=== PATIENT | male | born 1995 | race Two or more races ===

== ENCOUNTER 2018-02-12 00:21 | Emergency (ER) | payer SELFPAY ==
[~2018-02-12] VITALS: Ht 170.2 cm; Wt 61.2 kg
[2018-02-12 03:05] VITALS: BP 130/77
[2018-02-12] MEDS ORDERED: LORazepam 0.5 MG TAB PO ONE (04:00)
== END 2018-02-12 04:28 | disposition home or self-care (01) ==
LOC: ER 00:21
DX: M79.602 Pain in left arm (principal); F41.9 Anxiety disorder, unspecified
CPT/HCPCS: 73060

== ENCOUNTER 2019-01-11 11:50 | Emergency (ER) | payer MEDICAID ==
[~2019-01-11] VITALS: Ht 167.6 cm; Wt 63.5 kg
[2019-01-11] MEDS ORDERED: SODIUM CHLORIDE 0.9% 1,000 ML IVB ONE (12:00)
[2019-01-11 13:22] LABS: Urine Bacteria FEW /hpf (None Seen); Urine Blood Negative /uL (Negative); Urine Hyaline Cast FEW /lpf (0 - 2); Urine Mucus FEW (None Seen); Urine Specific Gravity 1.022 (1.001-1.035); Urine WBC 2 /hpf (0 - 3)
[2019-01-11 13:26] LABS: Basophils # (auto) 0.1 uL; Basophils % (auto) 0.2 % (0.0-2.0); Eosinophils # (auto) 0 uL; Eosinophils % (auto) 0.1 % (0.0-7.0); Hematocrit 46.9 % (41.0-53.0); Hemoglobin 16.1 g/dL (13.5-17.5); Lymphocytes # (auto) 0.7 uL; Lymphocytes % (auto) 3.2 % (10.0-50.0); Mean Corpuscular Hemoglobin 31.8 pg (28.0-32.0); Mean Corpuscular Hgb Conc. 34.4 g/dL (32.0-36.0); Mean Corpuscular Volume 92.4 fL (80.0-100.0); Monocytes # (auto) 1.1 uL; Monocytes % (auto) 5.1 % (0.0-12.0); Neutrophils # (auto) 19.7 uL; Neutrophils % (auto) 91.4 % (37.0-80.0); Platelet Count (auto) 198 10^3/uL (140-450); Red Blood Cells 5.07 10^6/uL (4.5-5.90); Red Cell Distribution Width 12.6 % (11.8-14.3); White Blood Cell 21.5 10^3/uL (4.4-10.8)
[2019-01-11 13:27] LABS: Alcohol, Urine < 3.0 mg/dL (0-5); Amphetamine Screen, Urine NEGATIVE (NEGATIVE); Barbiturate Scree,Urine NEGATIVE (NEGATIVE); Benzodiazephine Screen, Urine POSITIVE (NEGATIVE); Cannabinoid Screen, Urine POSITIVE (NEGATIVE); Opiate Scree,Urine NEGATIVE (NEGATIVE); Phencyclidine Screen, Urine NEGATIVE (NEGATIVE)
[2019-01-11 13:41] LABS: Albumin 4.3 g/dL (3.4-5.0); Anion Gap 9 (5-15); BUN/Creatinine Ratio 14.8; Blood Alcohol < 3.0 mg/dL (0-5); Blood Urea Nitrogen 16 mg/dL (7-18); Calcium 7.7 mg/dL (8.5-10.1); Carbon Dioxide 26 mmol/L (21-32); Chloride 107 mmol/L (98-107); GFR African American 111 mL/min; GFR Non-African American 92 mL/min; Glucose 109 mg/dL (74-106); Magnesium 2.6 mg/dL (1.6-2.6); Potassium 3.8 mmol/L (3.5-5.1); Sodium 142 mmol/L (136-145)
[2019-01-11 13:42] LABS: Salicylate < 1.7 mg/dL (2.8-20.0)
[2019-01-11 13:44] LABS: Alanine Aminotransferase 15 U/L (16-61); Alkaline Phosphatase 62 U/L (45-117); Aspartate Aminotransferase 21 U/L (15-37); Bilirubin, Total 0.4 mg/dL (0.2-1.0); Total Protein 7.4 g/dL (6.4-8.2)
[2019-01-11 13:52] LABS: Cocaine Screen, Urine POSITIVE (NEGATIVE)
[2019-01-11 14:14] LABS: Acetaminophen < 2.0 ug/mL (10-30)
[2019-01-11 16:41] VITALS: BP 116/72
== END 2019-01-11 16:42 | disposition home or self-care (01) ==
LOC: EDBD 11:50 → ER 11:59
DX: R40.4 Transient alteration of awareness (principal); F11.229 Opioid dependence with intoxication, unspecified; F14.10 Cocaine abuse, uncomplicated; F12.90 Cannabis use, unspecified, uncomplicated; D72.828 Other elevated white blood cell count
CPT/HCPCS: 36415; 70450; 71045; 80053; 80307; 80320; 80329; 81001; 83735; 85025; 93005; 94761; 99284; J7030

== ENCOUNTER 2020-11-04 15:22 | Emergency (ER) | payer MEDICAID ==
[~2020-11-04] VITALS: Ht 172.7 cm; Wt 68.5 kg
[2020-11-04 15:56] LABS: Urine Bacteria FEW /hpf (None Seen); Urine Blood Negative /uL (Negative); Urine Hyaline Cast FEW /lpf (0 - 2); Urine Mucus FEW (None Seen); Urine WBC 1 /hpf (0 - 3)
[2020-11-04 16:33] LABS: Albumin 4.1 g/dL (3.4-5.0); BUN/Creatinine Ratio 18.6; Potassium 3.7 mmol/L (3.5-5.1)
[2020-11-04 16:36] LABS: Bilirubin, Total 0.2 mg/dL (0.2-1.0); Total Protein 9.3 g/dL (6.4-8.2)
[2020-11-04] MEDS ORDERED: SODIUM CHLORIDE 0.9% 1,000 ML IV ONE (17:15)
[2020-11-04] MEDS ORDERED: MORPHINE SULF INJ 2 MG/ML SYRINGE 1ML IV ONE (17:30)
[2020-11-04] MEDS ORDERED: ONDANSETRON HCL 4 MG/2 ML VIAL IV ONE (17:30)
[2020-11-04 17:42] LABS: Basophils # (auto) 0 10 ^3/uL (0-0.2); Basophils % (auto) 0.3 % (0.0-2.0); Eosinophils # (auto) 0 10 ^3/uL (0-0.8); Eosinophils % (auto) 0.5 % (0.0-7.0); Hematocrit 46.9 % (41.0-53.0); Lymphocytes # (auto) 3.6 10 ^3/uL (0.4-5.4); Lymphocytes % (auto) 39.4 % (10.0-50.0); Mean Corpuscular Hemoglobin 28.6 pg (28.0-32.0); Mean Corpuscular Hgb Conc. 34.1 g/dL (32.0-36.0); Mean Corpuscular Volume 83.9 fL (80.0-100.0); Monocytes # (auto) 0.6 10 ^3/uL (0-1.3); Monocytes % (auto) 6.4 % (0.0-12.0); Neutrophils # (auto) 4.9 10 ^3/uL (1.6-8.6); Neutrophils % (auto) 53.4 % (37.0-80.0); Nucleated Red Blood Cells % 0.2 %; Platelet Count (auto) 298 10^3/uL (140-450); Red Blood Cells 5.59 10^6/uL (4.5-5.90); Red Cell Distribution Width 14.9 % (11.8-14.3); White Blood Cell 9.2 10^3/uL (4.4-10.8)
[2020-11-04 18:20] LABS: Alcohol, Urine < 3.0 mg/dL (0-10); Amphetamine Screen, Urine NEGATIVE (NEGATIVE); Barbiturate Scree,Urine NEGATIVE (NEGATIVE); Benzodiazephine Screen, Urine NEGATIVE (NEGATIVE); Cannabinoid Screen, Urine NEGATIVE (NEGATIVE); Cocaine Screen, Urine NEGATIVE (NEGATIVE); Opiate Scree,Urine NEGATIVE (NEGATIVE); Phencyclidine Screen, Urine NEGATIVE (NEGATIVE)
[2020-11-04 18:32] LABS: Amylase 49 U/L (25-115); Blood Alcohol < 3.0 mg/dL (0-5); Lipase 36 U/L (73-393)
[2020-11-04 18:40] VITALS: BP 143/99
== END 2020-11-04 19:06 | disposition home or self-care (01) ==
LOC: ER 15:26
DX: K85.90 Acute pancreatitis without necrosis or infection, unspecified (principal)
CPT/HCPCS: 36415; 74176; 80053; 80307; 80320; 81001; 82150; 83690; 85025; 96361; 96374; 96375; 99284; J2270; J2405; J7030

== ENCOUNTER 2024-06-09 23:06 | Emergency (ER) | payer MEDICAID ==
[~2024-06-09] VITALS: Ht 172.7 cm; Wt 67.6 kg
[2024-06-10 01:10] VITALS: TEMP 97.8; O2SAT 98
--- NOTE | 2024-06-10 01:11 | DVH ---
XY L HAND 3V XRAY, INDICATION: left 3rd finger pain and swelling TECHNICAL DATA: Frontal, oblique and lateral views were obtained of the left hand. COMPARISON: None Tuft fracture at the 3rd digit distal phalanx.
[2024-06-10] MEDS: LIDOCAINE 1% HCL (LOCAL ANESTH.) INJ 20ML MDV ID ONE (01:15)
[2024-06-10] MEDS: KETOROLAC TROMETH 60MG/2ML VIAL IM ONE (01:22)
[2024-06-10] MEDS: MORPHINE SULFATE INJ 2 MG/ml SYRG IM ONE (01:22)
[2024-06-10 01:52] VITALS: BP 150/95; PULSE 82; RESP 18
--- NOTE | 2024-06-10 02:12 | ED.PDOC ---
History of Present Illness(SKN HPI Comments This is a 28-year-old male presents to the ED with left 3rd finger injury. Patient states he injured his left 3rd digit on 05/31/2024. States he hit his finger on the Fridge in his started swelling immediately. Patient reports he was seen at [facility] ER yesterday and states positive finger fracture per x-ray. Complaining of increasing pain, distal finger swelling he notes 10/10 pain pulsating pressure type pain nonradiating. He sleeps he does bite his fingernails and he did bite the fingernail that day. Numbness, weakness or new injury. Denies fevers or chills. Chief Complaint: Upper Extremity Time Seen by MD: 23:12 History of Present Illness: Nurses Notes, Medications, Allergies Allergies: Coded Allergies: Penicillins (Verified Allergy, Unknown, 06/09/24) Information Source: Patient Mode of Arrival: Ambulatory Family History Family History: Unknown Social History Smoker: Non-Smoker Alcohol: Sober Drugs: Other Lives In: Home Constitutional: denies: chills, diaphoresis, fatigue, fever, malaise, sweats, weakness, others EENTM: denies: blurred vision, double vision, ear bleeding, ear discharge, ear drainage, ear pain, ear ringing, eye pain, eye redness, hearing loss, mouth pain, mouth swelling, nasal discharge, nose bleeding, nose congestion, nose pain, photophobia, tearing, throat pain, throat swelling, voice changes, others Respiratory: denies: cough, hemoptysis, orthopnea, SOB at rest, shortness of breath, SOB with excertion, stridor, wheezing, others Cardiovascular: denies: chest pain, dizzy spells, diaphoresis, Dyspnea on exertion, edema, irregular heart beat, left arm pain, lightheadedness, palpitations, PND, syncope, others Gastrointestinal: denies: abdomen distended, abdominal pain, blood streaked bowels, constipated, diarrhea, dysphagia, difficulty swallowing, hematemesis, melena, nausea, poor appetite, poor fluid intake, rectal bleeding, rectal pain, vomiting, others Genitourinary: denies: burning, dysuria, flank pain, frequency, hematuria, incontinence, penile discharge, penile sore, pain, testicle pain, testicle swelling, urgency, others Neurological: denies: dizziness, fainting, headache, left sided numbness, left sided weakness, numbness, paresthesia, pre-existing deficit, right sided numbness, right sided weakness, seizure, speech problems, tingling, tremors, weakness, others Musculoskeletal: reports: others (Middle finger swelling and pain); denies: back pain, gout, joint pain, joint swelling, muscle pain, muscle stiffness, neck pain Integumetry: denies: bruises, change in color, change in hair/nails, dryness, laceration, lesions, lumps, rash, wounds, others Allergic/Immunocompromised: denies: Difficulty Healing, Frequent Infections, Hives, Itching, others Hematologic/Lymphatic: denies: anemia, blood clots, easy bleeding, easy bruising, swollen glands, others Endocrine: denies: excessive hunger, excessive sweating, excessive thirst, excessive urination, flushing, intolerance to cold, intolerance to heat, unexplained weight gain, unexplained weight loss, others Psychiatric: denies: anxiety, bipolar disorder, depression, hopeless, panic disorder, schizophrenia, sleepless, suicidal, others Physical Exam General Appearance: No Apparent Distress, Normal HEENT: Pharynx Normal Neck: Full Range of Motion, Non-Tender Respiratory: Lungs Clear, No Respiratory Distress, Normal Breath Sounds Cardiovascular: No Murmur, Normal Peripheral Pulses, Regular Rate/Rhythm Breast Exam: Deferred Gastrointestinal: No Organomegaly, Non Tender, Soft Genitalia: Deferred Pelvic: Deferred Rectal: Deferred Extremities: Normal capillary refill, Normal inspection, Normal range of motion, Non-tender, No pedal edema Musculoskeletal : Location: Left Extremity Location: Finger 3 (Moderate edema and tenderness distal fingertip with noted fluctuant pocket surrounding nail bed drainage positive erythema no noted streaking cap refill less than 3 seconds strength sensory motion intact) Apperance: Normal Neurologic: Alert, development vice president II-XII nml as Tested, No Motor Deficits, Normal Affect, Normal Mood, No Sensory Deficits Cerebellar Function: Normal Reflexes: Normal Skin: Dry, Normal Color, Warm Lymphatic: No Adenopathy Was a procedure done? Was a procedure done?: Yes Sedation Sedation?: No Informed consent obtained: Yes Incision and Drainage Incision and Drainage: Abscess Location 3rd digit distal posterior aspect around nail bed. Anesthetic: Lidocaine, Other (Digital block performed of the 3rd digit) Preparation: Betadine, Saline Incision and Wound: Pus, Blood Informed consent obtained: Yes Risks/benefits/alt described: Yes Notes Tolerated procedure well with minimal blood loss Differential Diagnosis (INTG) Differential Diagnosis: Cellulitis, Fracture, Hematoma X-Ray, Labs, Meds, VS Vital Signs Date Time Temp Pulse Resp B/P (MAP) Pulse Ox O2 Delivery O2 Flow Rate FiO2 06/10/24 01:52 82 18 150/95 06/10/24 01:22 89 18 165/105 06/10/24 01:10 79 20 98 Room Air 06/10/24 01:10 97.8 79 20 165/105 (125) 98 97.8 06/09/24 23:24 98.3 103 18 151/109 (123) 97 Current Medications Medications (Trade) Dose Ordered Sig/Ashley Route Start Time Stop Time Status Last Admin Morphine Sulfate 1 mg ONCE ONCE IM 06/10/24 01:15 06/10/24 01:16 DC 06/10/24 01:22 Ketorolac Tromethamine (Toradol Injection) 60 mg ONCE ONCE IM 06/10/24 01:15 06/10/24 01:16 DC 06/10/24 01:22 Ceftriaxone Sodium (Rocephin) 1,000 mg ONCE ONCE IM 06/10/24 02:15 06/10/24 02:16 DC 06/10/24 02:50 X-Ray, Labs, Meds, VS Comment See procedure note. Patient given Rocephin 1 g IM. Advised to continue the antibiotics and pain medication he was prescribed by the last ER. Frog splint placed dressing placed. Has a follow up with his PCP in 2-3 days for referral to ortho hand. ER return precautions given patient indicated understanding agrees with discharge plan of care. Time of 1ST Reevaluation: 02:12 Reevaluation 1ST: Improved Patient Education/Counseling: Diagnosis, Treatment, Prognosis, Need For Follow Up Family Education/Counseling: Diagnosis, Treatment, Prognosis, Need For Follow Up Departure 1 Departure Time of Disposition: 02:12 Impression: Primary Impression: Felon of digit Additional Impression: Fracture, finger, distal phalanx Qualified Codes: S62.663A - Nondisplaced fracture of distal phalanx of left middle finger, initial encounter for closed fracture Disposition: HOME / SELF CARE / HOMELESS Condition: Stable Discharged With: Significant Other Critical Care Note Critical Care Time?: No Stability Stability form required: VITALY Patel Jun 10, 2024 02:12
[2024-06-10] MEDS: cefTRIAXone SOD 1,000 MG VL IM ONE (02:50)
== END 2024-06-10 03:02 | disposition home or self-care (01) ==
LOC: ER 23:06
DX: S62.633A Displaced fracture of distal phalanx of left middle finger, initial encounter for closed fracture (principal); L03.012 Cellulitis of left finger; H93.A9 Pulsatile tinnitus, unspecified ear; Z88.0 Allergy status to penicillin; X58.XXXA Exposure to other specified factors, initial encounter; Y93.89 Activity, other specified; Y92.89 Other specified places as the place of occurrence of the external cause; Y99.8 Other external cause status
CPT/HCPCS: 10060; 73130; 96372; 99284; J0696; J1885; J2003; J2270; J7030